=== PATIENT | female | born 1940 | race Caucasian/White ===

== ENCOUNTER 2017-05-19 15:50 | Inpatient (IN) | payer MEDICARE, BC ==
[~2017-05-19] VITALS: Ht 157.5 cm; Wt 55.8 kg
[~2017-05-19 15:50] MED LIST: AMIT75TA2 PO; CRAN425C6 PO; DILT240C99 PO; MAGN400T3 PO; METF10002 PO; METO25TA6 PO; PANT40TA2 PO; SITA50TA PO
[2017-05-19] MEDS ORDERED: RANI300C PO (17:13)
[2017-05-19] MEDS ORDERED: HYDR-3974 PO (17:13)
[2017-05-19] MEDS ORDERED: NIFE30TA91 PO (17:13)
[2017-05-19] MEDS ORDERED: MECL-102 PO (17:13)
[2017-05-19] MEDS ORDERED: LIDO28.35 TP (17:13)
[2017-05-19] MEDS ORDERED: BLOO-170 IN (17:13)
[2017-05-19] MEDS ORDERED: CIPR250T4 PO (17:13)
[2017-05-19] MEDS ORDERED: LISI10TA5 PO (17:13)
[2017-05-19] MEDS ORDERED: PHEN-895 PO (17:13)
[2017-05-19] MEDS ORDERED: ATOR40TA PO (17:13)
[2017-05-19] MEDS ORDERED: LEFL20TA18 PO (17:13)
[2017-05-19] MEDS ORDERED: IV NORMAL SALINE 1000 ML BAG IV ONE (17:30)
[2017-05-19 18:03] LABS: CARBON DIOXIDE 15 mmol/L (21-32); CHLORIDE 93 mmol/L (98-107); CREATININE 1.8 mg/dL (0.6-1.3); GLUCOSE 152 mg/dL (74-106); POTASSIUM 3.8 mmol/L (3.5-5.1); UREA NITROGEN, BLOOD 33 mg/dL (7-18)
[2017-05-19] MEDS ORDERED: NORMAL SALINE FLUSH 10 ML DISP.SYRIN ONE (18:04)
[2017-05-19] MEDS ORDERED: IOHEXOL 300MG/ML 100 ML INFUS..BTL ONE (18:04)
[2017-05-19] MEDS ORDERED: IV NORMAL SALINE 0 ML IV ONE (18:04)
[2017-05-19 18:06] LABS: BASOPHILS % (AUTO) 0.1 % (0.0-2.0); EOSINOPHILS # (AUTO) 0.1 K/uL (0.0-0.7); EOSINOPHILS % (AUTO) 0.3 % (0.0-7.0); HEMATOCRIT 30.2 % (37-47); LYMPHOCYTES # (AUTO) 1.4 K/UL (0.8-4.8); LYMPHOCYTES % (AUTO) 7.4 % (20.5-51.5); MEAN CORPUSCULAR HEMOGLOBIN 30.1 UUG (27.0-31.0); MEAN CORPUSCULAR HGB CONC 33 g/dL (32.0-37.0); MEAN CORPUSCULAR VOLUME 91.2 FL (81.0-99.0); MONOCYTES # (AUTO) 1.3 K/UL (0.1-1.30); MONOCYTES % (AUTO) 7.1 % (0.0-11.0); NEUTROPHILS # (AUTO) 15.7 K/UL (1.8-8.9); NEUTROPHILS % (AUTO) 85.1 % (38.5-71.5); PLATELET COUNT (AUTO) 333 K/UL (150-450); RED BLOOD CELL COUNT(AUTO) 3.31 MIL/UL (4.2-5.4); WHITE BLOOD COUNT (AUTO) 18.5 K/UL (4.0-11.2)
--- NOTE | 2017-05-19 18:06 | NUR ---
PT IS IN ROOM #2B. DR DORADO EVALUATED THE PT.
[2017-05-19 18:19] LABS: ALANINE AMINOTRANSFERASE 9 U/L (14-59); ALKALINE PHOSPHATASE 117 U/L (50-136); ASPARTATE AMINOTRANSFERASE 31 U/L (15-37); BILIRUBIN,DIRECT 0.2 mg/dL (0.0-0.2); BILIRUBIN,TOTAL 0.4 mg/dL (0.2-1.0); TOTAL PROTEIN, SERUM 6.5 g/dL (6.4-8.2)
[2017-05-19] MEDS ORDERED: CEFTRIAXONE 1 G in IV DEXTROSE 5% 50 ML IV ONE (18:56)
[2017-05-19] MEDS ORDERED: ASPIRIN 81 MG TAB.CHEW PO ONE ×2 (19:00)
[2017-05-19] MEDS ORDERED: ASPIRIN 81 MG TAB.CHEW ONE (19:19)
[2017-05-19] MEDS ORDERED: CEFTRIAXONE 1 G VIAL ONE (19:19)
[2017-05-19 19:21] LABS: BAND % (MANUAL) 8 % (0-10); LYMPHOCYTES % (MANUAL) 9 % (20-40); MONOCYTES % (MANUAL) 6 % (2-10); NEUTROPHILS % (MANUAL) 77 % (42-75)
[2017-05-19] MEDS ORDERED: ENOXAPARIN SODIUM 40 MG/0.4 ML DISP.SYRIN SQ ONE ×3 (19:30→19:50)
[2017-05-19] MEDS ORDERED: ENOXAPARIN SODIUM 30 MG/0.3 ML DISP.SYRIN ONE (20:01)
--- NOTE | 2017-05-19 20:24 | NUR ---
Patient being admitted to [facility] under Marcel Mirza Np. Report called to Kylee STEVENSON @ 2018. Patient going to bed 209. Obtained bed assignment @ 0969
--- NOTE | 2017-05-19 20:32 | NUR ---
Pt. admitted to [facility] , under care of Dr. Marcel Mirza. Dx: NSTEMI/WI Belongs List completed
[2017-05-19 20:40] VITALS: BP 135/69
--- NOTE | 2017-05-19 21:35 | NUR ---
PATIENT TRANSFERRED FROM ER INTO [facility]TELE UNIT ROOM 209 IN STABLE CONDITION. NO SIGNS OF DISTRESS. 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 NO FALL NOTED. BED IN LOCK POSITION, LOW POSITION, AND PATIENT APPEARS COMFORTABLE. VITAL SIGNS TAKEN AND WNL. NO COMPLAINTS OF CHEST PAIN. FLUIDS FROM ER COMPLETED IN [facility]/TELE UNIT. ALERT/ORIENTATED X 3. PATIENT DOES NOT EXPRESS ANY SIGNS OR VERBALIZE PAIN EXPERIENCE. SAFETY AND COMFORT PROVIDED.
[2017-05-19] MEDS ORDERED: CEFTRIAXONE 1 G in IV DEXTROSE 5% 50 ML IV SCH (22:30)
[2017-05-19] MEDS ORDERED: DEXTROSE 50% 50 ML DISP.SYRIN IV PRN (22:30)
[2017-05-19] MEDS ORDERED: ONDANSETRON 4 MG/2 ML VIAL IV PRN (22:30)
[2017-05-19] MEDS: BLOOD SUGAR DIAGNOSTIC 1 EACH STRIP VI SCH (22:33)
--- NOTE | 2017-05-19 22:34 | NUR ---
nsg: rocephin not administered, received in ER at 1909 tonight.
[2017-05-19] MEDS: ACETAMINOPHEN 325 MG TABLET PO PRN (22:51)
--- NOTE | 2017-05-19 22:51 | NUR ---
TYLENOL 650 MG ADMINISTERED TO PATIENT AT 2251 ON 05/19/17.
[2017-05-19] MEDS ORDERED: ACETAMINOPHEN 325 MG TABLET ONE (23:03)
[2017-05-20] VITALS (7 sets, daily range): BP systolic 99–156; BP diastolic 51–70
[2017-05-20] MEDS ORDERED: Z GUARD REMEDY PASTE 57 GM TUBE TOP PRN (00:30)
--- NOTE | 2017-05-20 02:54 | NUR ---
nsg: pt c/o shivering, and hr increasing to Sinus tachycardia. temp is 100.0F ORAL. APPLIED COOLING MEASURES. CONT TO MONITOR. tylenol not due yet.
--- NOTE | 2017-05-20 03:56 | NUR ---
NSG: PT IS NOW CONFUSED. HR SUSTAINING 130'S, ATRIAL TACH. BP 156/63, TEMP 98.6F ORAL. HAD A FEVER EARLIER WITH 100.0F TEMP. APPLIED COOLING MEASURES. NOTIFIED DR. ARCHANA MCDONALD. AWAITING CALL BACK. PT WAS SR ON TELE EARLIER DURING ADMISSION.
[2017-05-20 04:10] LABS: *BILIRUBIN,URIN NEGATIVE (NEGATIVE); *BLOOD, URINE Trace-lysed (NEGATIVE); *CLARITY,URINE CLEAR (CLEAR); *COLOR,URINE STRAW (YELLOW); *KETONES,URINE 1+ (NEGATIVE); *PROTEIN,URINE NEGATIVE (NEGATIVE); *UROBILINOGEN,URINE 0.2 E.U./dl (NORMAL); LEUKOCYTE ESTERASE ,URINE TRACE (NEGATIVE); NITRITE, URINE NEGATIVE (NEGATIVE); PH,URINE 5.5 (5.0-8.0); UGLUCOSE NEGATIVE (NEGATIVE)
[2017-05-20 04:28] LABS: BACTERIA,URINE FEW /HPF (NONE SEEN); SQUAMOUS EPITHELIAL CELL,UR FEW /HPF (NONE SEEN)
--- NOTE | 2017-05-20 04:30 | NUR ---
nsnd attempt to get a hold of Dr. Iban Gil. pt confused, on atrial tach sustaining with hr 134. afebrile at this time.
--- NOTE | 2017-05-20 04:39 | NUR ---
NSG: SPOKE WITH DR. ARCHANA MCDONALD, NOTIFIED REGARDING INCREASE HR OF 137 SUSTAINING ATRIAL TACH, AND PT BEING CONFUSED. RECEIVED ORDER FOR ZOSYN 4.5G IV Q8 AND MONITOR HR.
[2017-05-20] MEDS ORDERED: PIPERACILLIN/TAZO 4.5 GM VIAL IV ONE (05:20)
--- NOTE | 2017-05-20 05:29 | NUR ---
nsg: pt wants to be off bipap. put on 1L O2 via nc. Addendum: 05/20/17 at 0559 by STACY BROWN RN WRONG PATIENT.
[2017-05-20] MEDS ORDERED: PIPERACILLIN SODIUM/TAZOBACTAM 4.5 G in IV DEXTROSE 5% 50 ML IV SCH (06:00)
--- NOTE | 2017-05-20 06:00 | NUR ---
nsg: pt is now sinus tachycardia with hr 112. pt a/o x 2, cont to monitor. v/s stable. afebrile.
--- NOTE | 2017-05-20 07:00 | NUR ---
nsg: pt now a/o x 4, afebrile. no acute distress noted. tele, ST 108. cont to monitor.
[2017-05-20] MEDS: BLOOD SUGAR DIAGNOSTIC 1 EACH STRIP VI SCH ×4 (07:02→20:45)
--- NOTE | 2017-05-20 07:10 | NUR ---
PATIENT RECEIVED IN ROOM RESTING IN BED EASILY AWAKEN IN NO ACUTE DISTRESS. 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 RESPIRATIONS EVEN AND UNLABORED. FALL PRECAUTIONS IN PLACE.
[2017-05-20 07:45] LABS: BASOPHILS % (AUTO) 0.1 % (0.0-2.0); EOSINOPHILS % (AUTO) 0.2 % (0.0-7.0); HEMATOCRIT 31.5 % (37-47); HEMOGLOBIN 10.4 G/DL (12.0-16.0); LYMPHOCYTES # (AUTO) 0.5 K/UL (0.8-4.8); LYMPHOCYTES % (AUTO) 2.5 % (20.5-51.5); MEAN CORPUSCULAR HEMOGLOBIN 30.3 UUG (27.0-31.0); MEAN CORPUSCULAR HGB CONC 33 g/dL (32.0-37.0); MEAN CORPUSCULAR VOLUME 91.6 FL (81.0-99.0); MONOCYTES # (AUTO) 1.8 K/UL (0.1-1.30); MONOCYTES % (AUTO) 8.3 % (0.0-11.0); NEUTROPHILS # (AUTO) 19.5 K/UL (1.8-8.9); NEUTROPHILS % (AUTO) 88.9 % (38.5-71.5); PLATELET COUNT (AUTO) 311 K/UL (150-450); RED BLOOD CELL COUNT(AUTO) 3.44 MIL/UL (4.2-5.4)
[2017-05-20 07:47] LABS: THYROID STIMULATING HORMONE 1.309 mIU/mL (0.358-3.740)
[2017-05-20 07:49] LABS: WHITE BLOOD COUNT (AUTO) 21.8 K/UL (4.0-11.2)
[2017-05-20 07:54] LABS: ALANINE AMINOTRANSFERASE 12 U/L (14-59); ALKALINE PHOSPHATASE 119 U/L (50-136); ASPARTATE AMINOTRANSFERASE 33 U/L (15-37); BILIRUBIN,TOTAL 0.4 mg/dL (0.2-1.0); CARBON DIOXIDE 11 mmol/L (21-32); CHLORIDE 100 mmol/L (98-107); CHOLESTEROL 71 mg/dL (<200); CREATININE 1.5 mg/dL (0.6-1.3); GLUCOSE 122 mg/dL (74-106); MAGNESIUM 1.7 mg/dL (1.8-2.4); PHOSPHOROUS 2.8 mg/dL (2.5-4.9); POTASSIUM 3.5 mmol/L (3.5-5.1); TOTAL PROTEIN, SERUM 6.4 g/dL (6.4-8.2); TRIGLYCERIDES 318 MG/DL (30-150); UREA NITROGEN, BLOOD 31 mg/dL (7-18)
[2017-05-20 07:58] LABS: HDL CHOLESTEROL < 10 mg/dL (40-60)
[2017-05-20] MEDS ORDERED: SITAGLIPTIN PHOSPHATE 50 MG TABLET PO SCH (09:00)
[2017-05-20 09:34] LABS: BAND % (MANUAL) 7 % (0-10); LYMPHOCYTES % (MANUAL) 4 % (20-40); MONOCYTES % (MANUAL) 7 % (2-10); NEUTROPHILS % (MANUAL) 82 % (42-75)
[2017-05-20] MEDS: ASPIRIN EC 81 MG TABLET.DR PO SCH (11:00)
--- NOTE | 2017-05-20 11:00 | NUR ---
PATIENT SEEN BY DR. HARRIS.
[2017-05-20] MEDS: METOPROLOL TARTRATE 25 MG TABLET PO SCH ×2 (11:08→20:34)
[2017-05-20] MEDS: FAMOTIDINE 20 MG TABLET PO SCH (11:08)
[2017-05-20] MEDS: LISINOPRIL 10 MG TABLET PO SCH (11:09)
[2017-05-20] MEDS: ENOXAPARIN SODIUM 60 MG/0.6 ML DISP.SYRIN SQ SCH (11:11)
[2017-05-20] MEDS: NIFEdipine XL 30 MG TABSR PO SCH (11:13)
[2017-05-20] MEDS: LINAGLIPTIN 5 MG TABLET PO SCH (11:13)
--- NOTE | 2017-05-20 11:40 | NUR ---
PATIENT SEEN BY DR. ROTH.
[2017-05-20] MEDS: PIPERACILLIN/TAZOBACTAM/D5W 2.25 G in PREMIXED 1 EACH IV SCH ×3 (12:47→23:52)
[2017-05-20] MEDS: INSULIN REGULAR, HUMAN 300 UNIT/3 ML VIAL SQ PRN ×2 (12:47→20:47)
[2017-05-20] MEDS: NYSTATIN SUSPENSION 5 ML LIQUID UDC PO SCH ×3 (14:03→20:24)
[2017-05-20 15:18] LABS: *CREATININE,URINE 45.3 mg/dL (30-125)
[2017-05-20] MEDS ORDERED: MAGNESIUM SULFATE/D5W 100 ML IV SCH (15:45)
--- NOTE | 2017-05-20 18:33 | NUR ---
END OF SHIFT NOTE: PATIENT IN NO ACUTE DISTRESS THROUGHOUT SHIFT. CONTINUES WITH POOR APPETITE. PO FLUIDS AND BOOST ENCOURAGED. TURNED AND REPOSITIONED EVERY 2 HOURS AND PRN. NEEDS MET BY STAFF.
--- NOTE | 2017-05-20 19:15 | NUR ---
received in bed, alert oriented, no sob no chest pain, rhythm is sinus rhythm, watching tv, kept clean and dry, supra cath patent, draining with yellow color urine in moderate amount, call light within reach. cont to monitor.
[2017-05-20] MEDS: ATORVASTATIN 40 MG TABLET PO SCH (20:25)
[2017-05-20] MEDS ORDERED: CEFTRIAXONE 1 G in IV DEXTROSE 5% 50 ML IV SCH (21:00)
[2017-05-20] MEDS: ACETAMINOPHEN 325 MG TABLET PO PRN (22:25)
[2017-05-20] MEDS: HYDROCODONE/APAP 5-325MG TABLET PO PRN (23:43)
[2017-05-21 00:02] VITALS: BP 95/52
--- NOTE | 2017-05-21 01:00 | NUR ---
patient complain of suprapubic cath site pain, given pain meds with help after one hour, suprapubic cath site color pink in color, no drainage, no odor, cont to monitor, draining with yellow color urine in moderate amount, patient refused dvt pump stated 'it keep me awake at night, i dont want it" call light within reach.
[2017-05-21 04:54] VITALS: BP 111/49
[2017-05-21] MEDS: PIPERACILLIN/TAZOBACTAM/D5W 2.25 G in PREMIXED 1 EACH IV SCH ×4 (05:17→23:01)
--- NOTE | 2017-05-21 05:39 | NUR ---
patient slept most of the night, no sob no chest pain, rhythm is sinus rhythm, no further complain of pain at this time, supra pubic cath patent draining with yellow color urine in moderate amount, afebrile, call light within reach. cont to monitor.
[2017-05-21 07:23] LABS: BASOPHILS % (AUTO) 0.1 % (0.0-2.0); EOSINOPHILS # (AUTO) 0.2 K/uL (0.0-0.7); EOSINOPHILS % (AUTO) 1.3 % (0.0-7.0); HEMOGLOBIN 9.9 G/DL (12.0-16.0); MEAN CORPUSCULAR HEMOGLOBIN 29.9 UUG (27.0-31.0); MEAN CORPUSCULAR HGB CONC 33 g/dL (32.0-37.0); MEAN CORPUSCULAR VOLUME 90.3 FL (81.0-99.0); MONOCYTES # (AUTO) 1.1 K/UL (0.1-1.30); MONOCYTES % (AUTO) 7.3 % (0.0-11.0); NEUTROPHILS # (AUTO) 12.1 K/UL (1.8-8.9); NEUTROPHILS % (AUTO) 78.3 % (38.5-71.5); PLATELET COUNT (AUTO) 298 K/UL (150-450); RED BLOOD CELL COUNT(AUTO) 3.32 MIL/UL (4.2-5.4)
[2017-05-21 07:27] LABS: WHITE BLOOD COUNT (AUTO) 15.4 K/UL (4.0-11.2)
[2017-05-21 07:28] LABS: ALANINE AMINOTRANSFERASE 9 U/L (14-59); ALKALINE PHOSPHATASE 99 U/L (50-136); ASPARTATE AMINOTRANSFERASE 31 U/L (15-37); BILIRUBIN,TOTAL 0.4 mg/dL (0.2-1.0); CARBON DIOXIDE 16 mmol/L (21-32); CHLORIDE 98 mmol/L (98-107); CREATININE 1.3 mg/dL (0.6-1.3); GLUCOSE 97 mg/dL (74-106); MAGNESIUM 2.1 mg/dL (1.8-2.4); PHOSPHOROUS 2.3 mg/dL (2.5-4.9); POTASSIUM 3.3 mmol/L (3.5-5.1); TOTAL PROTEIN, SERUM 6.1 g/dL (6.4-8.2); UREA NITROGEN, BLOOD 32 mg/dL (7-18)
[2017-05-21 07:39] VITALS: BP 109/52
[2017-05-21] MEDS: BLOOD SUGAR DIAGNOSTIC 1 EACH STRIP VI SCH ×4 (08:31→20:13)
[2017-05-21] MEDS: ASPIRIN EC 81 MG TABLET.DR PO SCH (08:37)
[2017-05-21] MEDS: LINAGLIPTIN 5 MG TABLET PO SCH (08:37)
[2017-05-21] MEDS: FAMOTIDINE 20 MG TABLET PO SCH (08:38)
[2017-05-21] MEDS: NYSTATIN SUSPENSION 5 ML LIQUID UDC PO SCH ×4 (08:38→20:12)
[2017-05-21] MEDS: METOPROLOL TARTRATE 25 MG TABLET PO SCH ×2 (08:39→20:12)
[2017-05-21] MEDS: LISINOPRIL 10 MG TABLET PO SCH (08:39)
[2017-05-21] MEDS: NIFEdipine XL 30 MG TABSR PO SCH (08:40)
[2017-05-21] MEDS: ENOXAPARIN SODIUM 60 MG/0.6 ML DISP.SYRIN SQ SCH (08:41)
[2017-05-21] MEDS ORDERED: NEUTRA PHOS PACKET PO ONE (10:15)
[2017-05-21] MEDS ORDERED: IV NS 1000 ML 1,000 ML IV ONE (10:15)
[2017-05-21] MEDS ORDERED: FLUCONAZOLE 200 MG TABLET PO SCH (10:45)
[2017-05-21] MEDS: ACETAMINOPHEN 325 MG TABLET PO PRN ×2 (10:57→22:30)
[2017-05-21 11:13] VITALS: BP 110/54
[2017-05-21] MEDS: FLUCONAZOLE 100 MG TABLET PO SCH (11:50)
[2017-05-21 15:03] VITALS: BP 108/50
--- NOTE | 2017-05-21 16:12 | NUR ---
Dr. Loja scheduled the patient for a heart cath tomorrow, 05/22/17, at 13:30 in [facility]. The patient and her DPOAHC, Valerie Paez [ ], are aware and in agreement of the procedure. Spoke to Rafaela from [facility] [ ; ] and she knows about the procedure scheduled but requested for the patient's information to be faxed. Confirmation of fax received. Updated her RN [Vandana] and the charger operator helper [Reena] on the situation. Ambulance picker and packer at 10:30 a.m. was scheduled with [facility].
[2017-05-21] MEDS: INSULIN REGULAR, HUMAN 300 UNIT/3 ML VIAL SQ PRN ×2 (17:36→20:21)
--- NOTE | 2017-05-21 19:30 | NUR ---
RECEIVED PATIENT LAYING COMFORTABLY IN BED. NO ACUTE DISTRESS NOTED. A&OX4 BUT FORGETFUL. IV ON THE LEFT FOREARM IS PATENT AND INTACT. DUMONT CARE PROVIDED. URINE IS CLEAR AND YELLOW. SAFETY INITIATED, CALL LIGHT WITHIN REACH. WILL CONTINUE TO MONITOR.
[2017-05-21 20:00] VITALS: BP 133/65
[2017-05-21] MEDS: ATORVASTATIN 40 MG TABLET PO SCH (20:11)
[2017-05-21] MEDS ORDERED: CEFTRIAXONE 1 G in IV DEXTROSE 5% 50 ML IV SCH (21:00)
[2017-05-21] MEDS: HYDROCODONE/APAP 5-325MG TABLET PO PRN (21:02)
[2017-05-22 00:15] VITALS: BP 105/49
[2017-05-22 04:00] VITALS: BP 137/63
[2017-05-22] MEDS: HYDROCODONE/APAP 5-325MG TABLET PO PRN ×3 (04:03→16:25)
--- NOTE | 2017-05-22 04:08 | NUR ---
PATIENT C/O HEADACHE AND ABDOMINAL PAIN. MEDS GIVEN. WILL CONTINUE TO MONITOR.
[2017-05-22] MEDS: PIPERACILLIN/TAZOBACTAM/D5W 2.25 G in PREMIXED 1 EACH IV SCH ×3 (06:16→18:00)
--- NOTE | 2017-05-22 06:28 | NUR ---
PATIENT SLEPT INTERMITTENLY T/O SHIFT. NO ACUTE DISTRESS NOTED. PATIENT C/O OF H/ AND ABD. PAIN. MEDS GIVEN, STATED RELIEF. DUMONT CARE PROVIDED. NOTED SACRAL REDNESS. SAFETY AND COMFORT MEASURES MAINTAINED T/O SHIFT. ALL MEDS GIVEN ORDERED. ALL NEEDS MET. VSS.
[2017-05-22] MEDS: BLOOD SUGAR DIAGNOSTIC 1 EACH STRIP VI SCH ×3 (06:34→16:30)
[2017-05-22 06:38] LABS: EOSINOPHILS # (AUTO) 0.2 K/uL (0.0-0.7); EOSINOPHILS % (AUTO) 1.3 % (0.0-7.0); HEMATOCRIT 25.7 % (37-47); HEMOGLOBIN 8.6 G/DL (12.0-16.0); LYMPHOCYTES # (AUTO) 1.7 K/UL (0.8-4.8); MEAN CORPUSCULAR HEMOGLOBIN 30.7 UUG (27.0-31.0); MEAN CORPUSCULAR HGB CONC 34 g/dL (32.0-37.0); MEAN CORPUSCULAR VOLUME 91.5 FL (81.0-99.0); MONOCYTES # (AUTO) 1.4 K/UL (0.1-1.30); MONOCYTES % (AUTO) 9.7 % (0.0-11.0); NEUTROPHILS # (AUTO) 10.6 K/UL (1.8-8.9); PLATELET COUNT (AUTO) 255 K/UL (150-450); RED BLOOD CELL COUNT(AUTO) 2.82 MIL/UL (4.2-5.4); WHITE BLOOD COUNT (AUTO) 13.9 K/UL (4.0-11.2)
[2017-05-22 07:39] LABS: CARBON DIOXIDE 16 mmol/L (21-32); CHLORIDE 105 mmol/L (98-107); GLUCOSE 82 mg/dL (74-106); PHOSPHOROUS 2.9 mg/dL (2.5-4.9); POTASSIUM 3.3 mmol/L (3.5-5.1); UREA NITROGEN, BLOOD 25 mg/dL (7-18)
[2017-05-22] MEDS: ASPIRIN EC 81 MG TABLET.DR PO SCH (09:02)
[2017-05-22] MEDS: FAMOTIDINE 20 MG TABLET PO SCH (09:02)
[2017-05-22] MEDS: LINAGLIPTIN 5 MG TABLET PO SCH (09:02)
[2017-05-22] MEDS: NYSTATIN SUSPENSION 5 ML LIQUID UDC PO SCH ×3 (09:02→17:00)
[2017-05-22] MEDS: ENOXAPARIN SODIUM 60 MG/0.6 ML DISP.SYRIN SQ SCH (09:03)
[2017-05-22] MEDS: METOPROLOL TARTRATE 25 MG TABLET PO SCH (09:08)
[2017-05-22] MEDS: NIFEdipine XL 30 MG TABSR PO SCH (09:08)
[2017-05-22] MEDS: FLUCONAZOLE 100 MG TABLET PO SCH (09:08)
[2017-05-22] MEDS: LISINOPRIL 10 MG TABLET PO SCH (09:08)
--- NOTE | 2017-05-22 11:00 | NUR ---
Report given to EMT. Pt c/o abd pain norco 1 tab for pain level of 9/10 described as aching.
[2017-05-22 11:11] VITALS: BP 138/63
[2017-05-22] MEDS ORDERED: POTASSIUM CHLORIDE 10 MEQ CAPSULE.SA PO ONE (11:30)
--- NOTE | 2017-05-22 12:09 | NUR ---
Unable to reassess pain due to pt was taken to [place] heart labeling specialist [place] [facility]
--- NOTE | 2017-05-22 12:22 | NUR ---
Spoke with gianluca dia from [facility]. heart laborer [employer] report given and verified last lovenox given this am.
[2017-05-22] MEDS ORDERED: ENOXAPARIN SODIUM 60 MG/0.6 ML DISP.SYRIN SQ SCH (21:00)
[2017-05-22] MEDS ORDERED: MUPIROCIN 2% OINT 22 GM TUBE NS SCH (21:00)
[2017-05-23 08:15] LABS: CANCER AG, 125 12.9 U/mL (0.0-38.1); CANCER ANTIGEN 15-3 35.7 U/mL (0.0-25.0)
== END 2017-05-22 11:00 | disposition short-term general hospital (02) | DRG 280 ==
LOC: ER 15:51 → TELE-TD 20:23 → TELE 05-21 09:55
PROVIDERS: ADMIT Nurse Practitioner Acute Care; ATTEND Nurse Practitioner Acute Care
DX: I21.4 Non-ST elevation (NSTEMI) myocardial infarction (principal); A41.9 Sepsis, unspecified organism; R65.20 Severe sepsis without septic shock; N17.0 Acute kidney failure with tubular necrosis; E87.2 Acidosis; B37.81 Candidal esophagitis; E11.22 Type 2 diabetes mellitus with diabetic chronic kidney disease; E87.1 Hypo-osmolality and hyponatremia; N39.0 Urinary tract infection, site not specified; M48.58XD Collapsed vertebra, not elsewhere classified, sacral and sacrococcygeal region, subsequent encounter for fracture with routine healing; R13.10 Dysphagia, unspecified; D64.9 Anemia, unspecified; Z85.51 Personal history of malignant neoplasm of bladder; Z90.710 Acquired absence of both cervix and uterus; E78.5 Hyperlipidemia, unspecified; B96.5 Pseudomonas (aeruginosa) (mallei) (pseudomallei) as the cause of diseases classified elsewhere; R63.4 Abnormal weight loss; Z68.22 Body mass index [BMI] 22.0-22.9, adult; Z98.890 Other specified postprocedural states; Z22.322 Carrier or suspected carrier of Methicillin resistant Staphylococcus aureus; I12.9 Hypertensive chronic kidney disease with stage 1 through stage 4 chronic kidney disease, or unspecified chronic kidney disease; N18.9 Chronic kidney disease, unspecified; E86.0 Dehydration; Z79.84 Long term (current) use of oral hypoglycemic drugs; Z79.899 Other long term (current) drug therapy; Z82.3 Family history of stroke; Z83.3 Family history of diabetes mellitus; Z82.49 Family history of ischemic heart disease and other diseases of the circulatory system; Z87.440 Personal history of urinary (tract) infections; D72.825 Bandemia
CPT/HCPCS: 36415; 70030-TC; 71010; 71250; 82378; 83605; 83735; 84100; 84300; 84443; 85025; 85730; 86300; 86301; 87040; 87077; 87086; 93005; 93307; A4663; J0696; J1650; J1815; J2543; J3475; J3490; J7030; J7050; J7060; Q9967